=== PATIENT | female | born 1945 | race Caucasian/White ===

== ENCOUNTER 2017-10-13 05:35 | Day surgery (SDC) | payer MEDICARE ==
[~2017-10-13] VITALS: Ht 154.9 cm; Wt 40.9 kg
[~2017-10-13 05:35] MED LIST: CeFAZolin 1 GM/DEXTROSE 50 ML IV ONE; DOCU250C91 PO; LORazepam 2 MG/ML VIAL IVP PRN; OXYC10 PO; SODIUM CHLORIDE 0.9% 1,000 ML IV ONE
[2017-10-13] MEDS ORDERED: KETAMINE HCL 50 MG/ML 10 ML VIAL IVP ONE (05:36)
[2017-10-13] MEDS ORDERED: ONDANSETRON HCL 4 MG/2 ML VIAL IVP ONE (05:36)
[2017-10-13] MEDS ORDERED: KETOROLAC TROMETHAMINE 60 MG/2 ML VIAL IM ONE (05:36)
[2017-10-13] MEDS ORDERED: MIDAZOLAM HCL 2 MG/2 ML VIAL IVP ONE (05:36)
[2017-10-13] MEDS ORDERED: DEXAMETHASONE SOD PHOS 4 MG/ML VIAL IVP ONE (05:36)
[2017-10-13] MEDS ORDERED: FentaNYL CITRATE-PF 100 MCG/2 ML VIAL IVP ONE (05:36)
[2017-10-13] MEDS ORDERED: RINGERS SOLUTION,LACTATED 1,000 ML IV ONE (06:00)
[2017-10-13] MEDS ORDERED: CeFAZolin 1 GM/DEXTROSE 50 ML IV ONE (06:01)
[2017-10-13] MEDS ORDERED: SODIUM CHLORIDE 0.9% 1,000 ML IV ONE (06:01)
[2017-10-13 06:32] LABS: ALANINE AMINOTRANSFERASE 10 U/L (12-78); ALBUMIN 2.1 g/dL (3.4-5.0); ALKALINE PHOSPHATASE 94 U/L (46-116); ANION GAP 6 mmol/L (8-16); ASPARTATE AMINOTRANSFERASE 20 U/L (15-37); BILIRUBIN,TOTAL 0.3 mg/dL (0.1-1.0); CARBON DIOXIDE 34 mmol/L (22-29); CHLORIDE 95 mmol/L (98-107); CREATININE 0.71 mg/dL (0.60-1.30); GLOMERULAR FILTR. RATE CALC > 60 mL/min (>60); GLUCOSE,RANDOM 109 mg/dL (70-110); SODIUM SERUM 135 mmol/L (136-145); TOTAL PROTEIN, SERUM 6.4 g/dL (6.4-8.2); UREA NITROGEN, BLOOD 5 mg/dL (7-18)
[2017-10-13 06:52] LABS: POTASSIUM 2.7 mmol/L (3.5-5.1)
[2017-10-13 06:55] LABS: EOSINOPHILS # (AUTO) 0.02 K/uL (0.00-0.70); EOSINOPHILS % (AUTO) 0.14 % (1.0-6.0); HEMOGLOBIN 9.2 g/dL (12.0-16.0); LYMPHOCYTES # (AUTO) 0.5 K/uL (1.0-4.8); LYMPHOCYTES % (AUTO) 3.5 % (22.0-44.0); MEAN CORPUSCULAR HEMOGLOBIN 28.5 pg (26.0-34.0); MEAN CORPUSCULAR VOLUME 86 fL (80-100); MONOCYTES # (AUTO) 0.7 K/uL (0.1-1.0); MONOCYTES % (AUTO) 4.5 % (2.0-9.0); NEUTROPHILS # (AUTO) 13.5 K/uL (1.8-7.7); PLATELET COUNT (AUTO) 739 K/uL (150-450); RED BLOOD CELL COUNT(AUTO) 3.24 MIL/uL (4.00-5.20); RED CELL DISTRIBUTION WIDTH 15.5 % (11.5-14.5)
[2017-10-13 06:56] LABS: NEUTROPHILS % (AUTO) 91.9 % (40.0-70.0)
[2017-10-13] MEDS ORDERED: POTASSIUM CHLORIDE 20 MEQ ER TABLET ONE (07:24)
[2017-10-13] MEDS ORDERED: POTASSIUM CHLORIDE 20 MEQ ER TABLET PO ONE (07:30)
[2017-10-13] MEDS ORDERED: SODIUM CHLORIDE 0.9% 1,000 ML IV SCH (09:31)
[2017-10-13] MEDS ORDERED: HYDROmorphone HCL 2 MG TABLET PO ONE (09:45)
[2017-10-13] MEDS ORDERED: HYDROmorphone 2 MG/ML SYRINGE IVP PRN ×2 (09:45→10:00)
[2017-10-13] MEDS ORDERED: MAGNESIUM SULFATE 2 GM, MVI, ADULT NO.1 WITH VIT K 10 ML, THIAMINE HCL 100 MG, FOLIC AC... IV ONE ×5 (09:45)
[2017-10-13] MEDS ORDERED: OxyCODONE HCL/ACETAMINOPHEN 5-325 MG TABLET PO PRN ×2 (09:45)
[2017-10-13] MEDS ORDERED: LIDOCAINE HCL/PF 1% 30 ML VIAL ONE (09:47)
[2017-10-13] MEDS ORDERED: MEPERIDINE-PF 25 MG/ML SYRINGE IVP PRN (10:00)
[2017-10-13] MEDS ORDERED: FentaNYL CITRATE-PF 100 MCG/2 ML VIAL IVP PRN (10:00)
[2017-10-13] MEDS ORDERED: HYDROmorphone 2 MG/ML SYRINGE ONE (10:51)
[2017-10-13] MEDS ORDERED: HYDROmorphone HCL 2 MG TABLET ONE (11:13)
[2017-10-13] MEDS ORDERED: OXYGEN THERAPY IH SCH (20:00)
== END 2017-10-13 13:05 | disposition home or self-care (01) ==
LOC: SURGERY 05:35 → EDSTATUS 07:30 → SURGERY 13:05
PROVIDERS: ATTEND Radiology Diagnostic Radiology
DX: R19.09 Other intra-abdominal and pelvic swelling, mass and lump (principal); G89.29 Other chronic pain; Z85.42 Personal history of malignant neoplasm of other parts of uterus; Z85.048 Personal history of other malignant neoplasm of rectum, rectosigmoid junction, and anus; Z90.49 Acquired absence of other specified parts of digestive tract; Z93.3 Colostomy status; Z90.710 Acquired absence of both cervix and uterus; Z98.890 Other specified postprocedural states
CPT/HCPCS: 20983; 36415; 80053; 84132; 85025; 99152; 99153; C2618; J0690; J1100; J1170; J1885; J2250; J2405; J3010; J3411; J3475; J3490 ×4; J7030